=== PATIENT | female | born 1950 | race Caucasian/White ===

== ENCOUNTER → 2020-10-02 14:24 | Outpatient (BNVA) | payer MEDICARE, BC, SELFPAY | PROVIDERS: Visit Provider Nurse Practitioner Family | DX: Z11.52 Encounter for screening for COVID-19; J98.8 Other specified respiratory disorders; J06.9 Acute upper respiratory infection, unspecified | CPT/HCPCS: 87635 ==

== ENCOUNTER → 2020-11-15 11:47 | Outpatient (BNVA) | payer MEDICARE, BC, SELFPAY | PROVIDERS: Visit Provider Family Medicine | DX: E78.5 Hyperlipidemia, unspecified (principal); G47.33 Obstructive sleep apnea (adult) (pediatric); I10 Essential (primary) hypertension; K21.9 Gastro-esophageal reflux disease without esophagitis; Z98.890 Other specified postprocedural states | CPT/HCPCS: 80053; 80061; 84443; 85025 ==

== ENCOUNTER 2021-06-04 12:12 | Outpatient (CLI) | payer MEDICARE, OTHER, SELFPAY ==
[2021-06-04 12:49] VITALS: BMI 24.0
[2021-06-04 13:20] VITALS: BP 154/86; PULSE 68; RESP 16; TEMP 36.9; O2SAT 96
[2021-06-04 14:36] VITALS: BP 148/79; PULSE 60; RESP 16; TEMP 36.8; O2SAT 96
== END 2021-06-04 12:13 | disposition home or self-care (01) ==
PROVIDERS: PCP Nurse Practitioner Family; Visit Provider Nurse Practitioner Family
DX: U07.1 COVID-19 (principal)
CPT/HCPCS: 96365

== ENCOUNTER 2022-09-23 12:18 | Outpatient (CLI) | payer MEDICARE, OTHER, SELFPAY ==
--- NOTE | 2022-09-23 | XR_ITS ---
WS: [id number] Exam: XR cervical spine 3V* [id number] Date/Time of Exam: 09/23/2022 12:46 PM Reason For Exam: neck pain No acute fracture or dislocation. Disc spaces are relatively well maintained. Facet arthropathy at al l levels. Slight levoscoliosis. Mild spondylosis. Slight degenerative anterolisthesis of C4 on C5. Th e odontoid is intact. Paraspinal soft tissues are unremarkable. Calcified plaque in the left carotid system. XR/XR cervical spine 3V* [id number] IMPRESSION: 1. Degenerative changes as detailed above. 2. No fracture or malalignment.
== END 2022-09-23 12:19 | disposition home or self-care (01) ==
LOC: RAD 12:23
PROVIDERS: PCP Nurse Practitioner Family; Visit Provider Nurse Practitioner Family
DX: M47.892 Other spondylosis, cervical region (principal); M54.2 Cervicalgia
CPT/HCPCS: 72040

== ENCOUNTER 2024-06-15 11:05 | Outpatient (CLI) | payer MEDICARE, OTHER, SELFPAY ==
--- NOTE | 2024-06-15 11:09 | MM_ITS ---
WS: [id number] Bilateral screening 3D tomosynthesis digital mammogram, 06/15/2024 11:20 AM Clinical Data: SCREENING Comparison: 12/25/2021, 10/29/2021, 08/15/2018, 07/21/2017. Findings: No spiculated masses or clustered calcifications are seen. There are no secondary signs of carcinoma . MM/MM scr BI tomosynthesis [id number] Impression: Negative bilateral mammogram unchanged. Recommend annual screening mammograms. BIRADS: 1 - Negative FOLLOW UP: 1 Year Follow-up DENSITY: The breasts are heterogeneously dense, which may obscure small masses. The CAD clerk checker was used
== END 2024-06-15 11:06 | disposition home or self-care (01) ==
LOC: RAD 11:08
PROVIDERS: PCP Nurse Practitioner Family; Visit Provider Nurse Practitioner Family
DX: Z12.31 Encounter for screening mammogram for malignant neoplasm of breast (principal)
CPT/HCPCS: 77063; 77067

== ENCOUNTER → 2024-11-28 09:43 | Outpatient (BNVA) | payer MEDICARE, OTHER, SELFPAY | PROVIDERS: PCP Nurse Practitioner Family; Referring Provider Nurse Practitioner Family; Visit Provider Internal Medicine | DX: E04.1 Nontoxic single thyroid nodule (principal) | CPT/HCPCS: 99204 ==

== ENCOUNTER 2025-07-17 14:43 | Outpatient (CLI) | payer MEDICARE, OTHER, SELFPAY ==
--- NOTE | 2025-07-17 14:51 | CTR_ITS ---
PROCEDURE INFORMATION: Exam: CT Abdomen And Pelvis Without And With Contrast Exam date and time: 07/17/2025 4:05 PM Age: 75 years old Clinical indication: Abdominal pain; Generalized; Right lower quadrant pain into back x 2-3 months TECHNIQUE: Imaging protocol: Computed tomography of the abdomen and pelvis without and with contrast. Radiation optimization: All CT scans at this facility use at least one of these dose optimization techniques: automated exposure control; mA and/or kV adjustment per patient size (includes targeted exams where dose is matched to clinical indication); or iterative reconstruction. Contrast material: OMNI 350; Contrast volume: 100 ml; Contrast route: INTRAVENOUS (IV); Other contrast: Oral; COMPARISON: No relevant prior studies available. RADIATION DOSE METRICS: Total DLP (mGy-cm): 794.44 FINDINGS: Lungs: The visualized lung bases are unremarkable. Diaphragm: There is a small hiatal hernia. Liver: Average density in the liver measures 27 Hounsfield units, consistent hepatic steatosis. Gallbladder and biliary ducts: Normal. No calcified stones. No ductal dilation. Pancreas: Normal. No ductal dilation. Spleen: Normal. No splenomegaly. Adrenal glands: Normal. No mass. Kidneys and ureters: There is a punctate, 3 mm or less, nonobstructing left-sided renal stone. Stomach and bowel: Unremarkable. No obstruction. No mucosal thickening. Appendix: No evidence of appendicitis. Intraperitoneal space: Unremarkable. No free air. No significant fluid collection. Vasculature: The aorta is moderately calcified, nonaneurysmal. Lymph nodes: Unremarkable. No enlarged lymph nodes. Urinary bladder: Unremarkable as visualized. Reproductive: There is a partially calcified uterine leiomyoma, submucosal in location in the region of the fundus. Bones/joints: Degenerative changes are present within the spine. Soft tissues: Unremarkable. CT/CT abdomen pelvis wo/w [id number] IMPRESSION: 1. Punctate nonobstructing left renal stone. 2. Hepatic steatosis. 3. Small hiatal hernia. 4. Partially calcified submucosal uterine leiomyoma.
[2025-07-17] MEDS: iohexol 350 mg/mL 500 mL Btl (per mL) PO (16:12)
[2025-07-17] MEDS: iohexol 350 mg/mL 500 mL Btl (per mL) IV (16:12)
== END 2025-07-17 14:44 | disposition home or self-care (01) ==
PROVIDERS: PCP Nurse Practitioner Family; Visit Provider Nurse Practitioner Family
DX: R10.31 Right lower quadrant pain (principal); K44.9 Diaphragmatic hernia without obstruction or gangrene; I70.0 Atherosclerosis of aorta; D25.0 Submucous leiomyoma of uterus; R93.7 Abnormal findings on diagnostic imaging of other parts of musculoskeletal system; N20.0 Calculus of kidney; K76.0 Fatty (change of) liver, not elsewhere classified
CPT/HCPCS: 74178